=== PATIENT | female | born 1955 | race Caucasian/White ===

== ENCOUNTER 2024-06-11 14:07 | Emergency (ER) | payer OTHER ==
[2024-06-11 14:25] VITALS: BP 135/70; PULSE 85; RESP 16; TEMP 97.5; BMI 26.2
== END 2024-06-11 17:12 | disposition home or self-care (01) ==
LOC: JERFT 14:07
PROC: 2W3LX1Z Immobilization of Right Lower Extremity using Splint (ICD-10-PCS; principal; 2024-06-11)
DX: S82.831A Other fracture of upper and lower end of right fibula, initial encounter for closed fracture (principal); W00.0XXA Fall on same level due to ice and snow, initial encounter
CPT/HCPCS: 73610-TC-RT-FY; 73630-TC-RT-FY; 99283-25